=== PATIENT | male | born 1990 | race Asian ===

== ENCOUNTER 2024-11-04 19:33 | Emergency (ER) | payer SELFPAY ==
[2024-11-04 19:34] VITALS: BP 114/76
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
[2024-11-04 19:51] VITALS: BMI 23.8
[2024-11-04] MEDS: TORADOL 30 MG IM (19:56)
== END 2024-11-04 20:52 | disposition home or self-care (01) ==
LOC: EMR 19:33
PROVIDERS: EMERGENCY PHYSICIAN Emergency Medicine; FAMILY PHYSICIAN Internal Medicine
DX: S20.219A Contusion of unspecified front wall of thorax, initial encounter (principal); S63.501A Unspecified sprain of right wrist, initial encounter; S63.502A Unspecified sprain of left wrist, initial encounter; S40.012A Contusion of left shoulder, initial encounter; S70.02XA Contusion of left hip, initial encounter; V43.52XA Car driver injured in collision with other type car in traffic accident, initial encounter; Y92.410 Unspecified street and highway as the place of occurrence of the external cause; F42.9 Obsessive-compulsive disorder, unspecified
CPT/HCPCS: 99283; 96372; 71101; 73030; 73110; 73502